=== PATIENT | female | born 1995 | race Caucasian/White ===

== ENCOUNTER → 2024-05-22 14:45 | Outpatient (CLI) | payer BC, SELFPAY ==
--- NOTE | 2024-05-22 14:46 | DI.US.S_ITS ---
PROCEDURE: US PELVIC COMPLETE INDICATIONS: Menorrhagia, dysmenorrhea TECHNIQUE: Real-time scanning was performed of the pelvic organs, with image documentation. Additional endovaginal scanning was necessary due to incomplete visualization of the adnexal and endometrial structures by transabdominal scanning. COMPARISON: None. FINDINGS: Uterus: Uterus is anteverted and normal in size at 7.0 x 3.2 x 4.2 cm. The myometrium is homogeneous. The endometrium measures time mm combined thickness. Ovaries: The right ovary measures 2.9 x 2.9 x 2.0 cm, with a calculated ovarian volume of 8.8 cc. The left ovary measures 1.6 x 2.1 x 1.5 cm, with a calculated ovarian volume of 2.4 cc. Within the right ovary, there is a 1.6 x 0.9 x 1.4 cm hypoechoic foci with lobulated margins. Otherwise, the right ovary is within normal limits. The left ovary is within normal limits. Less than 12 follicles can be seen in each ovary. No adnexal masses are seen. Other: No pathologic free abdominal or pelvic fluid. IMPRESSION: 1. Within the right ovary, there is a hypoechoic focus measuring up to 2.1 cm with lobulated margins. Differentials include an endometrioma versus a hemorrhagic cyst. A follow-up in 2-3 menstrual cycles is suggested to ensure resolution. Otherwise an MRI can be considered for further characterization if clinically indicated. 2. The left ovary and uterus are within normal limits. We strive to produce accurate, complete, and clear reports of imaging services. To assist us in improving patient care, this report was composed using standard report templates and voice recognition software. Therefore, it may contain abnormal punctuation, insertions and/or omissions. Occasional wrong-word or sound-alike substitutions may occur. Though we review the report and make efforts to correct it, we do recommend that the report be read carefully in proper context to recognize any text inaccuracies. Dictated by: Ronnie Ibrahim M.D. on 05/23/2024 at 9:54 Approved by: Ronnie Ibrahim M.D. on 05/23/2024 at 10:06
== END ==
PROVIDERS: Referring Provider Physician Assistant Medical; Visit Provider Physician Assistant Medical
DX: N92.0 Excessive and frequent menstruation with regular cycle (principal); N94.6 Dysmenorrhea, unspecified
CPT/HCPCS: 76830; 76856

== ENCOUNTER 2024-08-16 07:59 | Day surgery (SDC) | payer BC, SELFPAY ==
[2024-08-14 16:14] VITALS: BMI 27.8
--- NOTE | 2024-08-16 | PATH_ITS ---
[facility] Accession Number: [id number] No. of containers..01 Tissue . 01 Material submitted: . peritoneum - PERITONEAL BIOPSY . 01 Diagnosis: PERITONEUM, BIOPSY: Fibroadipose tissue with endometriosis. Negative for atypia or malignancy, please see comment. MRV 08/21/2024 1427 Local . 01 Comment: There are sections of fibrous and adipose tissue with endometrial-type glands and associated stroma. The histologic features support the diagnosis of endometriosis. . There is no atypia or malignancy. . 01 Electronically signed: . Christiano Little MD, Pathologist NPI- [id number] . 01 Gross description: . Received in formalin with two patient identifiers and peritoneal biopsy, are two david to brown fragments of soft tissue. The first measures 1.2 x 1.0 x 0.3 cm. The possible margin is inked blue and the opposite surface is inked yellow. Serially sectioned and submitted entirely in cassette A1. The second fragment measures 1.3 x 0.6 x 0.6 cm. The suspected margin is inked blue, and opposite surface is inked yellow. Bisected and submitted entirely in cassette A2. ([id number]) /JANE 08/21/2024 1413 Local . 01 Pathologist provided ICD-10: N80.9, N94.6 . 01 CPT . 918603 Specimen Comment: A courtesy copy of this report has been sent to [facility] Performed at: [address] [facility] [id number] MD Peterson Chang MD Phone: [phone]
[2024-08-16 08:19] VITALS: BP 112/74; PULSE 75; RESP 16; TEMP 36.5; O2SAT 98; BMI 27.8
[2024-08-16] MEDS: SODIUM CHLORIDE 0.9% 1,000 ML 42 ML IV (08:41)
[2024-08-16] MEDS: SCOPOLAMINE 1 PATCH TOP (08:44)
--- NOTE | 2024-08-16 09:31 | PM.PREOP ---
Pre-operative Note Interval Note History & Physical reviewed/Exam performed by Physician: Yes Changes to H&P: No H&P completed within 30 days and has changed as indicated here:: see H&P from 07/30/24
[2024-08-16] MEDS: ACETAMINOPHEN IV 1,000 MG/100 ML VIAL 400 MG IV (10:00)
--- NOTE | 2024-08-16 10:15 | SUR.OPER ---
Lithotomy on padded OR bed, head on pillow, arms padded and tucked at side. Legs secured in padded yellow fins stirrups.
--- NOTE | 2024-08-16 10:17 | SUR.OPER ---
hibiclens 4% was used and diluted with sterile water for poole catheter prep.
[2024-08-16] MEDS: BUPIVACAINE 0.25% (PF) VIAL 30 ML INJ (10:19)
--- NOTE | 2024-08-16 10:57 | PM.OP.1 ---
Operative Date/Time/Diagnoses Date of procedure: 08/16/24 Time of procedure: 10:00 Pre-op diagnosis: Pelvic pain Post-op diagnosis: same (Endometriosis) Procedure & Clinicians Procedure: Diagnostic laparoscopy Fulguration of endometriosis Same procedure as scheduled: Yes Indications: 29yo F with chronic pelvic pain, scheduled for diagnostic laparoscopy. Surgeon: Jaci Mccoy Click Yes if Unassisted: Yes Anesthesia Type: General Operative Notes Findings: Normal appearing uterus, bilateral fallopian tubes, and bilateral ovaries. Numerous stellate lesions noted in the posterior cul-de-sac, uterosacral ligaments, and bilateral ovarian fossae. No lesions noted outside of the pelvis. Normal appearing liver edge and gallbladder. Closure Type: primary Specimen(s): other (peritoneal biopsies) Applied: catheter Estimated Blood Loss (mL): 5 Blood products transfused: none Procedure in detail: The risks, benefits, indications and alternatives of the procedure were reviewed with the patient and informed consent was obtained. The pt was taken to the operating room where general anesthesia was obtained without difficulty. The pt was then placed in the low lithotomy position using gel-padded Danny Stirrups. Sequential compression devices were placed bilaterally for VTE prophylaxis. Pt was then prepped and draped in the usual sterile fashion. A Poole catheter was placed without difficulty. Attention was then turned to the patient?s abdomen where a 5mm skin incision was made in the inferior aspect of the umbilicus after injection of 0.25% marcaine. A 5mm trocar and sleeve were then carefully introduced into the peritoneal cavity under direct visualization at a 90-degree angle while tenting up the abdominal wall. Intra-peritoneal placement was confirmed under direct visualization with the laparoscope with entry pressure <5mmHg. A pneumoperitoneum was obtained with several liters of CO2 gas, maximum pressure of 15mmHg. Upon entry into the peritoneal cavity, structures immediately below the incision were inspected and found to be free of injury. Two additional 5mm trocars were placed in the left lateral aspect of the abdominal wall under direct laparoscopic visualization after injection of 0.25% marcaine at each site. A survey of the pt?s abdomen and pelvis was notable for the above findings. Using an atraumatic grasper and the monopolar scissors, a portion peritoneum was removed from the right uterosacral ligament and sent to pathology. Another portion of peritoneum was excised on the left uterosacral ligament as well, which was also sent to pathology. The remaining stellate lesions were fulgurated using the monopolar scissors. All tissues were noted to be hemostatic. The gas was then turned off and all CO2 was removed from the pt?s abdomen. The trocars were removed. The skin incision sites were reapproximated using 4-0 monocryl and dermabond. The poole catheter was removed from the bladder. All instruments were confirmed to be removed from the vagina. At the completion of the case the sponge and needle counts were correct x 2. The patient tolerated the procedure well and was taken to the PACU in stable condition. Complications: none Post-operative Condition: stable Disposition: PACU Plan for aftercare: Discharge to home once meeting PACU criteria.
[2024-08-16 10:59] VITALS: BP 110/67; PULSE 100; RESP 15; TEMP 36.4; O2SAT 95
[2024-08-16 11:03] VITALS: BP 132/73; PULSE 94; RESP 16; O2SAT 94
[2024-08-16 11:08] VITALS: BP 116/74; PULSE 87; RESP 16; O2SAT 99
[2024-08-16 11:13] VITALS: BP 107/67; PULSE 74; RESP 8; TEMP 36.4; O2SAT 99
[2024-08-16 11:15] VITALS: BP 109/72; PULSE 76; RESP 11; TEMP 36.4; O2SAT 97
== END 2024-08-16 11:35 | disposition home or self-care (01) ==
PROVIDERS: Referring Provider Student in an Organized Health Care Education/Training Program; Visit Provider Student in an Organized Health Care Education/Training Program
PROC: 0U5B4ZZ Destruction of Endometrium, Percutaneous Endoscopic Approach (ICD-10-PCS; CPT 58662; principal; 2024-08-16 09:45)
DX: N94.6 Dysmenorrhea, unspecified (principal); N80.9 Endometriosis, unspecified
CPT/HCPCS: 58662; 81025; J0134; J1100; J1885; J2405; J2704